=== PATIENT | female | born 1960 | race Caucasian/White ===

== ENCOUNTER 2020-06-24 09:59 | Day surgery (SDC) | payer BC ==
[2020-06-22 13:09] VITALS: BMI 24.3
[~2020-06-24 09:59] MED LIST: LACTATED RINGERS 1,000 ML IV SCH; LIDOCAINE 1% (10MG/ML) FOR IV START INTRADERMA PRN
[2020-06-24 10:32] VITALS: RESP 16; TEMP 98.2
[2020-06-24] MEDS ORDERED: PROPOFOL 10 MG/ML 20 ML VIAL IV ONE (11:21)
[2020-06-24] MEDS ORDERED: GLYCOPYRROLATE 0.2 MG/ML 2 ML VIAL ONE (11:21)
[2020-06-24] MEDS ORDERED: LIDOCAINE 1% INJ 10MG/ML (20 ML MDV) ONE (11:21)
--- NOTE | 2020-06-24 12:08 | P.PCN ---
Date of Procedure: 06/24/20 Description of Procedure: BRIEF HISTORY: Patient is a 59-year-old female who presents for outpatient colonoscopy for change in bowel habits. She reports abdominal bloating and gas with sharp left- sided abdominal discomfort. She reports small daily bowel movements and problems with constipation. PROCEDURE PERFORMED: Colonoscopy with biopsy and polypectomy. PREOPERATIVE DIAGNOSIS: Change in bowel habits, no prior colonoscopy. ESTIMATED BLOOD LOSS: Minimal. IV sedation per Anesthesia. PROCEDURE: After informed consent was obtained, the patient, was brought into the endoscopy unit. IV sedation was administered by Anesthesia under continuous monitoring. Digital rectal examination was normal. Initially the Olympus CF-190 flexible video colonoscope was then inserted in the rectum, gradually advanced into the cecum without any difficulty. Careful examination was performed as the scope was gradually being withdrawn. Ileocecal valve and the appendiceal orifice were visualized and appeared normal. Prep was excellent. Mucosa of the cecum, ascending colon, transverse colon, descending colon, sigmoid colon, and rectum appeared normal. Biopsies were taken of the right and left colon in the setting of altered bowel function. Terminal ileum was also intubated and appeared fanny l biopsies taken. One flat 7 mm transverse colon polyp removed with cold snare polypectomy. Retroflexion was performed in the rectum and no lesions were seen. The patient tolerated the procedure well. IMPRESSION: Flat transverse colon polyp removed with cold snare polypectomy. Normal-appearing colon from rectum to cecum in normal-appearing terminal ileum with random biopsies taken of the right colon, left colon and terminal ileum. RECOMMENDATIONS: Findings of this examination were discussed with the patient and her . Okay to resume diet. Okay to resume medications. Follow-up in GI clinic in one week as scheduled for results of biopsies and further management. Would recommend repeat colonoscopy in 5 years for colon polyps pending pathology from polypectomy.
[2020-06-24 12:22] VITALS: BP 119/77; PULSE 77
== END 2020-06-24 12:57 | disposition home or self-care (01) ==
LOC: ORWHC2ENDO 09:59
PROVIDERS: ATTEND Internal Medicine
DX: D12.3 Benign neoplasm of transverse colon (principal); K63.89 Other specified diseases of intestine; K64.9 Unspecified hemorrhoids; Z87.891 Personal history of nicotine dependence; Z85.810 Personal history of malignant neoplasm of tongue
CPT/HCPCS: 88305; 45380; 45385; J2001; J2704

== ENCOUNTER → 2020-07-12 | Outpatient (CLI) | payer BC ==
--- NOTE | 2020-07-13 08:17 | CT ---
EXAMINATION TYPE: CT abdomen pelvis w con DATE OF EXAM: 07/12/2020 COMPARISON: None INDICATION: left side abd pain DLP: 499.9 mGycm, Automated exposure control for dose reduction was used. CONTRAST: 100 mL of Isovue 300. Study performed with Oral Contrast TECHNIQUE: Axial images were obtained from above the diaphragm to the pubic rami in the axial plane a t 5 mm thick sections. Reconstructed images are reviewed on the computer in the coronal plane. FINDINGS: Limited CT sections are obtained the lung bases. The lung bases are clear. CT ABDOMEN: Liver: Normal Spleen: Normal Pancreas: Normal Adrenal glands: The adrenal glands are normal. Gallbladder: Normal Kidneys: No masses are evident. No hydronephrosis is present. No cysts are present. Delayed images were obtained through the kidneys, which remain unremarkable. There is a punctate area of increased density within the inferior pole left kidney which may be a nonobstructing 0.2 cm calcification. Sandro y excretion of contrast could be considered within the differential. Aorta: Vascular calcification is within the aorta. Inferior vena cava: Normal. CT PELVIS: Loops of bowel within the abdomen and pelvis are normal. Few scattered diverticuli within the colon. There are loops of bowel which are incompletely distended or lack oral contrast limiting their tammy luation. Appendix: Normal as visualized. Urinary bladder: Urinary bladder is diffusely increased in density. Typical fluid signal within the u rinary bladder is not identified. Underlying mass should be considered. Consider additional urinary b ladder evaluation with pelvic ultrasound. Genitourinary structures: Uterus is unremarkable. Adnexal regions are clear. Osseous structures: No suspicious lytic or sclerotic lesions. Facet degenerative change in lumbar spi ne IMPRESSIONS: 1. The urinary bladder appears diffusely increased in density. No typical fluid-filled urinary bladd er is not appreciated. Underlying mass should be considered. Additional evaluation with pelvic ultras ound is recommended. 2. Nonobstructing punctate inferior pole left renal stone.
== END | disposition home or self-care (01) ==
LOC: RADCTMAIN 15:22
PROVIDERS: ATTEND Internal Medicine Gastroenterology
DX: N20.0 Calculus of kidney (principal)
CPT/HCPCS: 74177; Q9967

== ENCOUNTER 2020-12-31 08:10 | Observation (INO) | payer BC ==
[2020-12-24 16:14] VITALS: BMI 27.3
[~2020-12-31 08:10] MED LIST changes: +DEXAMETHASONE SOD PHOSPHATE 4 MG/ML 1 ML VIAL IV ONE; +HYDROmorphone 0.5 MG/0.5 ML SYRINGE IVP PRN; +ONDANSETRON 4 MG/2 ML VIAL IVP ONE
[2020-12-31] MEDS ORDERED: MIDAZOLAM 2 MG/2 ML VIAL ONE (10:14)
[2020-12-31] MEDS ORDERED: ACETAMINOPHEN IV (For NPO) 1,000 MG/100 ML VIAL ONE (10:14)
[2020-12-31] MEDS ORDERED: ROCURONIUM 10 MG/ML (5 ML VIAL) IV ONE (10:14)
[2020-12-31] MEDS ORDERED: NEOSTIGMINE 1 MG/ML 10 ML VIAL ONE (10:14)
[2020-12-31] MEDS ORDERED: FUROSEMIDE 10 MG/ML 2 ML VIAL ONE (10:14)
[2020-12-31] MEDS ORDERED: fentaNYL (PF) 50 MCG/ML 2 ML AMP ONE (10:14)
[2020-12-31] MEDS ORDERED: PROPOFOL 10 MG/ML 20 ML VIAL IV ONE (10:14)
[2020-12-31] MEDS ORDERED: LIDOCAINE 1% INJ 10MG/ML (20 ML MDV) ONE (10:14)
[2020-12-31] MEDS ORDERED: HYDROmorphone (PF) 1 MG/ML ONE (10:14)
[2020-12-31] MEDS ORDERED: ePHEDrine SULFATE/0.9% NACL/PF 50 MG/5 ML SYRINGE IV ONE (10:14)
[2020-12-31] MEDS ORDERED: GLYCOPYRROLATE 0.2 MG/ML 2 ML VIAL ONE (10:14)
[2020-12-31] MEDS ORDERED: BUPIVACAINE (PF) 0.5% 30 ML VIAL SQ ONE (10:17)
[2020-12-31] MEDS ORDERED: DEXTROSE 10% IN WATER 1,000 ML IV ONE (11:00)
[2020-12-31] MEDS ORDERED: LACTATED RINGERS 1,000 ML IV ONE ×2 (11:30→12:35)
[2020-12-31] MEDS ORDERED: NALOXONE 0.4 MG/ML 1 ML VIAL IV PRN (12:35)
[2020-12-31] MEDS ORDERED: HYDROmorphone 0.5 MG/0.5 ML SYRINGE IVP PRN (12:35)
--- NOTE | 2020-12-31 13:05 | P.OP ---
Date of Procedure: 12/31/20 Description of Procedure: Operative report Preoperative diagnosis: uterine prolapse Postoperative diagnosis: the same Surgery: robotic total laparoscopic hysterectomy with bilateral salpingo- oophorectomy and uterosacral ligament vaginal vault suspension. Surgeon: Stone Wiley MD Residential Carpenter: JOHN Anesthesia: Gen. Fluids: Crystalloids Output: clear urine from Crow catheter Findings: normal size uterus and normal bilateral tubes and ovaries. Uterine prolapse with cervix 1 cm below the hymen and anterior vaginal wall 3 cm below the hymen however reduced completely with reduction of the vaginal vault prolapse. Procedure: Patient was taken to the operating room where general menses was administered. She was placed in modified lithotomy position. Prep and drape were done in the sterile fashion. A BigSwerve-Indigo Identityware uterine manipulator was placed with a cervical cap. An umbilical incision was made and varies needle introduced. 3.5 L of CO2 introduced into the abdominal cavity. 8 mm trocar was inserted and laparoscope was inserted. Patient was placed in full Trendelenburg position. Findings were as above normal anatomy. Both ureters were visualized. A left mid quadrant trocar was placed approximately 12 cm lateral to the umbilicus, a right mid quadrant trocar was placed approximately 12 cm lateral to the umbilicus, and then a right sided trocar placed superior to the umbilicus and medial to the first right-sided trocar. The robot was brought to the bedside and the robot arms were docked to the trochars. Telescope was placed in the center trocar. Monopolar scissors attached to the right arm trocar, and enterocele was placed in the left arm trocar. At this time I left the bedside went to the robotic cosmetic counselor. The right infundibulopelvic ligament was grasped and doubly cauterized and then cut. The mesosalpinx was cauterized and cut down to the right round ligament. The round ligament was cauterized and cut. The anterior and posterior leafs of the broad ligament were then opened and the anterior leaf was incised down to the vesicouterine peritoneum this was then incised to the midline. The posterior leaf of the broad ligament was cut down to the right uterosacral ligament at the level of the cervical cup. Same procedure was then carried out on the opposite side. The bladder was taken off the lower uterine segment with sharp dissection. The uterine vasculature was cauterized in 4 areas at the level of the cervical cap and then cut on the right side. Same procedure was carried on the left side. An incision was made around the cervix at the level of the cervical cap circumferentially thereby the uterus and cervix and these were then delivered vaginally. The rubber top to an [place] was then placed intravaginally to maintain pneumothorax. The vaginal cuff was then repaired with 0 PDS barbed suture from the left corner to midline and then from the right corner to midline and then the stitches were continued to each opposite corner of the cuff and a small tail was left on each side to bing the vaginal corners. At the beginning of the case the uterosacral ligaments were marked with cautery from the location at the cervix to the high attachments on each side. O-PDS barbed suture was placed through the left vaginal cuff and then through the lower portion of the left uterosacral ligament. The same suture was then placed through the vaginal cuff a little bit more medial and then through a little higher area on the uterosacral ligament left side and when tightened down and pulled the left corner of the vaginal cuff to the left uterosacral ligament. Same stitch was then used to place a suture through the midportion of the vaginal cuff and then to the high area of uterosacral ligament. Another stitch was placed through the vaginal cuff to secure the lock on the suture. Same's procedure was performed on the opposite side. Another 0 PDS suture was used to then place it from one high uterosacral ligament on the right to high uterosacral ligament on the left and then fixed to the vaginal cuff in the midline thereby to add further security to the vault suspension. A couple of bites through the cuff were then used to make sure that the suture was locked in place. Throughout this the ureters were identified and still found to be in normal location without any kinking. There was thorough hemostasis. All instruments were removed, the robot was undocked, CO2 gas was allowed to escape and the trochars were removed. The incisions were repaired with 4-0 Vicryl suture material. A cystourethroscopy was performed showing no injury to the bladder or urethra and both ureters were functional with good reflux of urine on each side with the help of D10 infusion media and 10 mg of Lasix IV push along with the 250 mL fluid bolus. Final examination showed an excellent repair without any residual defects. The vaginal cuff was in a high position the anterior wall did not show any bulge. Crow catheter was reinserted after the cystoscopy. The patient tolerated the procedure well and was sent to postanesthetic recovery room in good condition.
[2020-12-31] MEDS: ONDANSETRON 4 MG/2 ML VIAL IVP PRN ×2 (14:20→21:46)
[2020-12-31] MEDS: HYDROcodone/APAP 5-325MG 1 EACH TAB PO PRN (16:01)
[2020-12-31 20:28] VITALS: RESP 16
[2020-12-31] MEDS: DOCUSATE 100 MG CAP PO SCH (21:37)
[2021-01-01 04:11] VITALS: PULSE 70
[2021-01-01] MEDS: HYDROcodone/APAP 5-325MG 1 EACH TAB PO PRN (06:34)
[2021-01-01] MEDS ORDERED: PANTOPRAZOLE 40 MG/10 ML VIAL IV SCH (09:00)
[2021-01-01 09:06] VITALS: BP 122/80; TEMP 98.2
[2021-01-01] MEDS: DOCUSATE 100 MG CAP PO SCH (09:11)
== END 2021-01-01 13:30 | disposition home or self-care (01) ==
LOC: OR 08:10 → 4FBP 12:26 → OR 21:54 → 4FBP 21:54
PROVIDERS: ADMIT Obstetrics & Gynecology; ATTEND Obstetrics & Gynecology
DX: N81.2 Incomplete uterovaginal prolapse (principal); Z78.0 Asymptomatic menopausal state; M81.0 Age-related osteoporosis without current pathological fracture; Z79.899 Other long term (current) drug therapy; Z85.818 Personal history of malignant neoplasm of other sites of lip, oral cavity, and pharynx; Z87.891 Personal history of nicotine dependence; Z82.62 Family history of osteoporosis
CPT/HCPCS: 57425; 58552; S2900; 36415; 86850; 86900; 86901; 88305

== ENCOUNTER → 2021-03-18 | Outpatient (CLI) | payer BC ==
[2021-03-18] MEDS: DENOSUMAB 60 MG/ML 1 ML SYRINGE SQ NR (09:43)
[2021-03-18 10:37] VITALS: BP 125/68; PULSE 75; RESP 18; TEMP 98.3
== END ==
LOC: PROCWHC3 09:23
PROVIDERS: ATTEND Obstetrics & Gynecology Obstetrics
DX: M81.0 Age-related osteoporosis without current pathological fracture (principal)
CPT/HCPCS: 96372; J0897

== ENCOUNTER → 2021-09-23 | Outpatient (CLI) | payer BC ==
[~2021-09-23] MED LIST changes: +DENOSUMAB 60 MG/ML 1 ML SYRINGE SQ NR; -DEXAMETHASONE SOD PHOSPHATE 4 MG/ML 1 ML VIAL IV ONE; -HYDROmorphone 0.5 MG/0.5 ML SYRINGE IVP PRN; -LACTATED RINGERS 1,000 ML IV SCH; -LIDOCAINE 1% (10MG/ML) FOR IV START INTRADERMA PRN; -ONDANSETRON 4 MG/2 ML VIAL IVP ONE
[2021-09-23 09:35] VITALS: BP 166/81; PULSE 73; RESP 16; TEMP 97.8
== END ==
LOC: PROCWHC3 09:15
PROVIDERS: ATTEND Obstetrics & Gynecology Obstetrics
DX: M81.0 Age-related osteoporosis without current pathological fracture (principal)
CPT/HCPCS: 96372; J0897

== ENCOUNTER → 2022-12-18 | Outpatient (CLI) | payer BC ==
--- NOTE | 2022-12-19 07:54 | FL ---
EXAMINATION TYPE: FL barium swallow DATE OF EXAM: 12/18/2022 CLINICAL HISTORY: Dysphasia TECHNIQUE: A double contrast esophagram is performed utilizing air and barium. A total of 37 second s of fluoroscopic time was utilized during procedure and 25 images obtained. Total DAP 353.46. COMPARISON: None FINDINGS: The esophagus shows tertiary contractions of esophagus with normal emptying into the stomac h. Assessment for hiatal hernia could not be performed as patient could not lie flat and position for procedure.. No significant gastroesophageal reflux was seen during real time performance of this bashir dy. IMPRESSION: 1. Tertiary contractions of esophagus suggests dysmotility. No evidence of obstruction or filling def ect. Consider direct visualization..
== END | disposition home or self-care (01) ==
LOC: RADMAMWWP 08:57
PROVIDERS: ATTEND Internal Medicine
DX: R13.19 Other dysphagia (principal)
CPT/HCPCS: 74220

== ENCOUNTER → 2023-01-01 | Outpatient (CLI) | payer BC ==
--- NOTE | 2023-01-02 09:59 | MM ---
Reason for Exam: Screening (asymptomatic). Last mammogram was performed 9 year(s) and 5 month(s) ago. Patient History: Menarche at age 11. First Full-Term at age 25. Left ovary removed at age 60. Right ovary removed at age 60. Hysterectomy at age 60. Postmenopausal. Patient has history of breast feeding. Risk Values: Izzy 5 year model risk: 1.8%. NCI Lifetime model risk: 7.2%. Prior Study Comparison: 08/11/2013 Bilateral Screening Mammogram, [facility]. Tissue Density: The breast tissue is extremely dense which could obscure a lesion on mammography. Findings: Analyzed By CAD. Pattern appears stable. No suspicious groups of microcalcifications, spiculated or lobular masses, architectural distortion or other secondary signs of malignancy are mammographically apparent. Overall Assessment: Benign, BI-RAD 2 Management: Screening Mammogram of both breasts in 1 year. A negative mammogram report should not preclude additional follow up of suspicious palpable abnormalities. Patient should continue monthly self breast exam. A clinical breast exam by your physician is recommended on an annual basis and results should be correlated with mammographic findings. Electronically signed and approved by: Quentin Estrada D.O. Radiologis
== END | disposition home or self-care (01) ==
LOC: RADMAMWWP 09:41
PROVIDERS: ATTEND Internal Medicine
DX: Z12.31 Encounter for screening mammogram for malignant neoplasm of breast (principal); Z78.0 Asymptomatic menopausal state
CPT/HCPCS: 77063; 77067

== ENCOUNTER → 2023-09-19 | Outpatient (CLI) | payer MEDICARE ==
--- NOTE | 2023-09-19 13:03 | XR ---
EXAMINATION TYPE: XR thoracic spine 2V DATE OF EXAM: 09/19/2023 12:28 PM CLINICAL INDICATION:Female, 63 years old with history of M54.9 Mid Back Pain; [facility] COMPARISON: None TECHNIQUE: XR thoracic spine 2V views of the thoracic spine in Frontal and lateral projections. FINDINGS: No evidence of acute fracture. There is scattered multilevel disk space narrowing. There is multilev el wedging of the vertebral bodies throughout the mid thoracic spine.. There is normal alignment of t he thoracic vertebral bodies. Scattered osteophyte formation along the anterior and lateral aspects o f the vertebral bodies. Neural foramen are patent given limitations of this exam. Spinal canal appear s patent. IMPRESSION: Multifocal level wedging of the midthoracic spine vertebral bodies. Correlate with pain for compressi on fracture. Consider further evaluation with MRI
== END | disposition home or self-care (01) ==
LOC: RADXRMAIN 12:18
PROVIDERS: ATTEND Internal Medicine
DX: M54.6 Pain in thoracic spine (principal)
CPT/HCPCS: 72070

== ENCOUNTER → 2024-01-17 | Outpatient (CLI) | payer MEDICARE ==
--- NOTE | 2024-01-17 11:58 | BD ---
EXAMINATION TYPE: Axial Bone Density DATE OF EXAM: 01/17/2024 CLINICAL HISTORY: 63 years old Female. ICD-10 CODE: M81.0 OSTEOPOROSIS Height: 60 Weight: 145.4 FRAX RISK QUESTIONS: Alcohol (3 or more units per day): no Family History (Parent hip fracture): no Glucocorticoids (More than 3mos): no (Ex: prednisone, prednisolone, methylprednisolone, dexamethasone, and hydrocortisone). History of Fracture in Adulthood: TSpine compression FX Secondary Osteoporosis: 1. Type 1 Diabetes:no 2. Hyperthyroidism:no 3. Menopause before 45: no 4. Malnutrition: no 5. Chronic liver disease: no Rheumatoid Arthritis: no Current Tobacco Use: no RISK FACTORS HISTORY OF: Hip Fracture (Right/Left): no Spine Fracture: TSpine When: 2023 History of Wrist Fracture: no Surgery to Spine/Hip(right/left)/Wrist (right/left): no MEDICATIONS: Thyroid Medications: no Osteoporosis Medications: Alendronate and Prolia previously How Long: past 2 years EXAM MEASUREMENTS: Bone mineral densitometry was performed using the Chemayi System. Bone mineral density as measured about the Lumbar spine is: ----- L1-L4(G/cm2): -2.2 T Score Values are as follows: ----- L1: -1.9 ----- L2: -2.2 ----- L3: -2.5 ----- L4: -2.4 ----- L1-L4: -2.2 Z Score Values are as follows: ----- L1: -0.3 ----- L2: -0.6 ----- L3: -0.9 ----- L4: -0.9 ----- L1-L4: -0.7 Baseline Study Bone mineral density about the R hip (g/cm2): 0.728 Bone mineral density about the L hip (g/cm2): 0.764 T Score values are as follows: -----R Neck: -2.0 -----L Neck: -1.8 -----R Total: -2.2 -----L Total: -1.9 Z Score values are as follows: -----R Neck: -0.5 -----L Neck: -0.4 -----R Total: -1.0 -----L Total: -0.8 Baseline Study FRAX%s: The graph provided illustrates a 17.3% chance for a major osteoporotic fx and a 2.6% chance f or the hips probability for fx in 10 years time. IMPRESSION: Osteoporosis (T Score less than -2.5). There is increased fracture risk and therapy is usually indicated based on age. Re-Screen 1-2 years. NOTE: T-SCORE=SD OF THE YOUNG ADULT MEAN.
--- NOTE | 2024-01-17 18:23 | MM ---
Reason for Exam: Screening (asymptomatic). Last mammogram was performed 1 year(s) and 1 month(s) ago. Patient History: Menarche at age 11. First Full-Term at age 25. Left ovary removed at age 60. Right ovary removed at age 60. Hysterectomy at age 60. Postmenopausal. Patient has history of breast feeding. Risk Values: Izzy 5 year model risk: 1.8%. NCI Lifetime model risk: 6.9%. Prior Study Comparison: 08/11/2013 Bilateral Screening Mammogram, [facility]. 01/01/2023 Bilateral MG 3D screening mammo w/cad, [facility]. Tissue Density: The breasts are extremely dense, which lowers the sensitivity of mammography. Findings: Analyzed By CAD. The pattern is symmetrical. Pattern is stable. No significant interval change is evident. No suspicious groups of microcalcifications, spiculated or lobular masses, architectural distortion or other secondary signs of malignancy are mammographically apparent. Overall Assessment: Benign, BI-RAD 2 Management: Screening Mammogram of both breasts in 1 year. A negative mammogram report should not preclude additional follow up of suspicious palpable abnormalities. Patient should continue monthly self breast exam. A clinical breast exam by your physician is recommended on an annual basis and results should be correlated with mammographic findings. Note on Izzy scores and lifetime risk: 1. A Izzy score greater than 3% is considered moderate risk. If this is the case, consider specialist referral to assess eligibility for a risk reducing agent. 2. If overall lifetime risk for the development of breast cancer is 20% or higher, the patient may qualify for future screening with alternating mammogram and breast MRI. Electronically signed and approved by: Quentin Estrada D.O. Radiologis
== END | disposition home or self-care (01) ==
LOC: RADBDWWP 07:55
PROVIDERS: ATTEND Internal Medicine
DX: Z12.31 Encounter for screening mammogram for malignant neoplasm of breast (principal); M85.89 Other specified disorders of bone density and structure, multiple sites; M81.0 Age-related osteoporosis without current pathological fracture; Z78.0 Asymptomatic menopausal state
CPT/HCPCS: 77063; 77067; 77080

== ENCOUNTER → 2024-09-04 | Outpatient (CLI) | payer MEDICARE ==
[2024-09-04] MEDS: DENOSUMAB 60 MG/ML 1 ML SYRINGE SQ NR (14:05)
[2024-09-04 14:23] VITALS: RESP 16; TEMP 97.6
[2024-09-04 14:26] VITALS: BP 131/92; PULSE 98
== END ==
LOC: PROCWHC3 14:04
PROVIDERS: ATTEND Internal Medicine
DX: M81.0 Age-related osteoporosis without current pathological fracture (principal)
CPT/HCPCS: 96372; J0897

== ENCOUNTER → 2024-10-02 | Outpatient (CLI) | payer MEDICARE ==
--- NOTE | 2024-10-02 14:00 | US ---
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 TECHNIQUE: Grayscale, color Doppler and spectral Doppler evaluation of the bilateral carotid systems and vertebral arteries. Indirect Doppler criteria was utilized. FINDINGS: EXAM MEASUREMENTS: RIGHT: Peak Systolic Velocity (PSV) cm/sec ----- Right CCA: 61.0 ----- Right ICA: 62.3 ----- Right ECA: 54.6 ICA/CCA ratio: 1.0 RIGHT: End Diastole cm/sec ----- Right CCA: 9.3 ----- Right ICA: 22.4 ----- Right ECA: 5.9 LEFT: Peak Systolic Velocity (PSV) cm/sec ----- Left CCA: 73.7 ----- Left ICA: 62.5 ----- Left ECA: 51.6 ICA/CCA ratio: 0.9 LEFT: End Diastole cm/sec ----- Left CCA: 8.3 ----- Left ICA: 13.1 ----- Left ECA: 2.2 VERTEBRALS (direction of flow): Right Vertebral: Antegrade Left Vertebral: Antegrade Rhythm: Normal SHELLS INSPECTOR NOTES: Mild homogeneous plaque with no stenosis seen Color Doppler imaging shows patency with blood flow throughout the carotid artery. Spectral waveforms are within normal limits. IMPRESSION: Right: No hemodynamically significant stenosis. Left: No hemodynamically significant stenosis. Criteria for Assigning % of Stenosis / Diameter reduction (Estimation based on the indirect measurements of the internal carotid artery velocities (ICA PSV). 1. Normal (no stenosis)=ICA PSV < 125 cm/s: ratio < 2.0: ICA EDV<40 cm/s. 2. Less than 50% stenosis=ICA PSV < 125 cm/s: ratio < 2.0: ICA EDV<40 cm/s. 3. 50 to 69% stenosis=ICA PSV of 125 to 230 cm/s: ration 2.0 ? 4.0: ICA EDV 40-100 cm/s. 4. Greater than 70% stenosis to near occlusion= ICA PSV > 230 cm/s: ratio > 4.0: ICA EDV > 100 cm/s. 5. Near occlusion= ICA PSV velocities may be low or undetectable: variable ratio and ICA EDV. 6. Total occlusion=unable to detect flow. [facility], , 10/02/2024 1:58 PM
== END | disposition home or self-care (01) ==
LOC: RADUSWWP 12:21
PROVIDERS: ATTEND Internal Medicine
DX: Z12.2 Encounter for screening for malignant neoplasm of respiratory organs (principal); I25.10 Atherosclerotic heart disease of native coronary artery without angina pectoris; I65.23 Occlusion and stenosis of bilateral carotid arteries
CPT/HCPCS: 93880

== ENCOUNTER → 2024-11-21 | Outpatient (CLI) | payer MEDICARE ==
[~2024-11-21] MED LIST changes: -DENOSUMAB 60 MG/ML 1 ML SYRINGE SQ NR; +DOBUTamine DRIP for NUC MED 500 MG in DEXTROSE/WATER 1 250ML.BAG IV PRN
== END | disposition home or self-care (01) ==
LOC: RADNMMAIN 10:00
PROVIDERS: ATTEND Internal Medicine
DX: Z53.9 Procedure and treatment not carried out, unspecified reason (principal)

== ENCOUNTER 2025-01-23 07:15 | Day surgery (SDC) | payer MEDICARE ==
[2025-01-20 16:02] VITALS: BMI 26.4
[~2025-01-23 07:15] MED LIST changes: -DOBUTamine DRIP for NUC MED 500 MG in DEXTROSE/WATER 1 250ML.BAG IV PRN; +LACTATED RINGERS 1,000 ML IV SCH; +LIDOCAINE 1% (10MG/ML) FOR IV START INTRADERMA PRN
[2025-01-23 07:52] VITALS: RESP 16; TEMP 97.4
[2025-01-23] MEDS: IV FLUID CONTINUATION 1,000 ML IV ONE ×2 (07:59→08:28)
[2025-01-23] MEDS ORDERED: GLYCOPYRROLATE 0.2 MG/ML 2 ML VIAL ONE (08:29)
[2025-01-23] MEDS ORDERED: LIDOCAINE 1% INJ 10MG/ML (20 ML MDV) ONE (08:29)
[2025-01-23] MEDS ORDERED: ATROPINE SULFATE 0.1 MG/ML 10ML SYRINGE ONE (08:29)
[2025-01-23] MEDS ORDERED: PROPOFOL 10 MG/ML 20 ML VIAL IV ONE (08:29)
--- NOTE | 2025-01-23 08:58 | P.PCN ---
Date of Procedure: 01/23/25 Procedure(s) Performed: Brief history: Patient is a pleasant 4-year-old white female scheduled for an elective upper endoscopy as well as colonoscopy as a part of evaluation of GERD/intermittent dysphagia to solids and screening for history of colon polyps. Last colonoscopy was 5 years ago and was noted to have an adenoma. Procedure performed: Esophagogastroduodenoscopy with biopsy Colonoscopy with biopsy Preoperative diagnosis: Intermittent dysphagia to solids For history of colon polyps Anesthesia: [facility] Procedure: After informed consent was obtained from the patient was brought into the endoscopy unit and IV sedation was administered by anesthesia under continuous monitoring. Initially upper endoscopy was done. The Olympus GF 160 video endoscope was inserted inserted into the mouth and esophagus intubated without any difficulty and was gradually advanced into the stomach and duodenum and carefully examined. The bulb and second part of the duodenum appeared normal. The scope was then withdrawn into the stomach adequately insufflated with air and upon careful examination the antrum had mild gastritis and biopsies were done from this area. Mucosa body, cardia and fundus appeared normal. The scope was then withdrawn into the esophagus. The GE junction was located at 40 cm to the incisors. It appeared regular with no erythema erosions or ulcerations. Rest of the esophagus appeared normal. Patient tolerated the procedure well. At this time the patient continued to remain sedation. Initial digital rectal examination was normal. Olympus CF 160 video colonoscope was then inserted into the rectum and gradually advanced to the cecum without any difficulty. Careful examination was performed as the scope was gradually being withdrawn. The prep was excellent. The cecum, ascending colon, transverse colon, appeared normal. The descending colon there was a 4 mm polyp that was removed by cold biopsy. Rest of the descending colon, sigmoid colon and rectum appeared normal. Scattered sigmoid diverticulosis. Retroflexion was performed in the rectum and no lesions were noted. Patient tolerated the procedure well. Impression: 1. Upper endoscopy revealed mild gastritis but no evidence of esophagitis or peptic ulcer disease 2. Colonoscopy revealed 4 mm descending colon polyp status post cold biopsy and scattered sigmoid diverticula Recommendations: Findings of this examination were discussed with the patient as well as her family. She was advised to follow-up with the biopsy results. If the biopsy reveals adenoma she can have repeat colonoscopy in 5 years
[2025-01-23 09:19] VITALS: BP 122/88; PULSE 94
== END 2025-01-23 09:44 | disposition home or self-care (01) ==
LOC: ORWHC2ENDO 07:15
PROVIDERS: ATTEND Internal Medicine Gastroenterology
DX: Z12.11 Encounter for screening for malignant neoplasm of colon (principal); D12.4 Benign neoplasm of descending colon; K57.30 Diverticulosis of large intestine without perforation or abscess without bleeding; K31.89 Other diseases of stomach and duodenum; K29.70 Gastritis, unspecified, without bleeding; K21.9 Gastro-esophageal reflux disease without esophagitis; Z86.0101 Personal history of adenomatous and serrated colon polyps; F32.A Depression, unspecified; I10 Essential (primary) hypertension; Z85.810 Personal history of malignant neoplasm of tongue; Z79.899 Other long term (current) drug therapy; Z90.710 Acquired absence of both cervix and uterus
CPT/HCPCS: 88305; 45380; 43239; J2003; J0461; J2704; J1596

== ENCOUNTER → 2025-02-02 | Outpatient (CLI) | payer MEDICARE ==
[~2025-02-02] MED LIST changes: +DOBUTamine DRIP for NUC MED 500 MG in DEXTROSE/WATER 1 250ML.BAG IV PRN; +DOBUTamine DRIP for NUC MED 500 MG/250 ML BAG IV ONE; -LACTATED RINGERS 1,000 ML IV SCH; -LIDOCAINE 1% (10MG/ML) FOR IV START INTRADERMA PRN
--- NOTE | 2025-02-02 17:56 | CA ---
Dobutamine Stress Echocardiogram Report Yamilka Wills Age: 64 Gender: F : 1960 Exam Date: 02/02/2025 09:53 Exam Location: [facility] Ordering Physician: Lynne Dill MD Referring Physician: Lynne Dill MD Spiral Runner: FLORA, Technologist: Ht (in): 60 Wt (lb): 132 Procedure CPT: Indication: I25.10 ATHSCL HEART DISEASE OF [place] CORONARY ART ICD-9 Codes: Rhythm: Patient History: CAD, shortness of breath and hypertension Cardiac Medications: Medications in past 24 hours: Contrast: Total Dose (mL): Stress Results Protocol: Dobutamine Peak Dose (???g/kg/min): 40 Duration (min:sec): Atropine:(mg) Target HR: 131 Double Product: [id number] Resting HR: 56 Resting BP: 166 / 96 Peak HR: 135 Peak BP: 143 / 76 Max Predicted HR: 154 88 % Max Predicted HR Stress Summary: BP Response: Reason for Termination: Exceeded target heart rate (85% max predicted) Cardiac Symptoms: Test terminated after reaching target heart rate (85% max predicted) ECG Analysis Resting EKG: Stress EKG: Arrhythmia: Echo Analysis Base Echo Analysis: Low Echo Anaylsis: Peak Echo Analysis: Recovery Echo: MEASUREMENTS (Male/Female) Normal Values CONCLUSIONS Diagnosis: CAD, hypertension, shortness of breath on exertion Dobutamine stress echo performed No ECG or echocardiographic evidence for ischemia Dr. Evan Bright MD (Electronically Signed) Final Date: 02 Feb 2025 17:55
== END | disposition home or self-care (01) ==
LOC: RADNMMAIN 09:05
PROVIDERS: ATTEND Internal Medicine
DX: I25.10 Atherosclerotic heart disease of native coronary artery without angina pectoris (principal); I10 Essential (primary) hypertension; R06.02 Shortness of breath
CPT/HCPCS: 93351